=== PATIENT | female | born 1995 | race Caucasian/White ===

== ENCOUNTER 2017-02-21 18:44 | Inpatient (IN) | payer SELFPAY ==
[~2017-02-21] VITALS: Ht 170.2 cm; Wt 113.0 kg
[2017-02-21] VITALS (8 sets, daily range): BP systolic 137–152; BP diastolic 84–93; PULSE 70–79; RESP 18–20
--- NOTE | 2017-02-21 19:34 | PD ---
HPI Chief Complaint Contractions Date Seen: Feb 21, 2017 Time Seen: 19:25 Travel History International Travel<30 Days: No Contact w/Intl Traveler<30Days: No Known Affected Area: No History of Present Illness HPI 21-year-old white female at 39-40 weeks who presents complaining of contractions today. No bleeding or leakage of fluid. Baby is active. Patient just got out of the [employer] several weeks ago and has not established care here and when she moved back here for that and delivery. Heart rate tracing is reassuring but not quite reactive yet and we'll monitor until that has become reactive. She is only having occasional contraction at this time the patient says she thinks they've been every 5 minutes for several hours., Blood pressure 146/92 , she has 3-4+ pitting edema in the legs to her lower extremities, and urinalysis is 4+ protein dipstick Weeks Gestation: 39 Para: 0 : 2 Last Menstrual Period: Feb 21, 2017 Miscarriage: 1 History Obstetric History Obstetric History 1 early loss Past Surgical History Narrative Surgical Tonsillectomy Social History Narrative Social History The patient just got out of the [employer] 2 weeks ago and she had care there but in several different locations Alcohol Use: No Tobacco Use: No Substance Abuse: No Allergies-Medications (Allergen,Severity, Reaction): Coded Allergies: azithromycin (Verified Allergy, Unknown, 02/21/17) sertraline (Verified Allergy, Unknown, 02/21/17) Review of Systems General / Constitutional: No: Fever, Weight Gain, Chills, Other Eyes: No: Diploplia, Blurred Vision, Visual changes, Pain, Photophobia HENT: Headaches, No: Vertigo, Lightheadedness Cardiovascular: No: Irregular Rhythm, Chest Pain or Discomfort, Palpitations, Tachycardia, Syncope, Varicosities, Edema, Cyanosis Respiratory: No: Cough, Short of Breath, Other Gastrointestinal: Abdominal Pain, No: Nausea, Vomiting, Diarrhea Genitourinary: No: Decreased Urinary Output, Oliguria Musculoskeletal: No: Limited ROM, Weakness, Cramping, Edema, Pain Skin: No Rash, No Itching, No Dryness, No Lumps, No Change in Pigmentation, No Change in Nails, No Alopecia, No Lesions Neurologic: No: Weakness, Dizziness, Syncope, Focal Abnormalities, Coordination Problem, Headache, Slurred Speech, Seizures Psychiatric: No: Depression, Suicidal Ideations, Homicidal Ideation Endocrine: No: Heat Intolerance, Cold Intolerance, Polydipsia, Polyuria, Other Physical Exam Narrative GENERAL: Well-nourished, well-developed patient. SKIN: Warm and dry. HEAD: Normocephalic and atraumatic. EYES: No scleral icterus. No injection or drainage. ENT: No nasal drainage noted. Mucous membranes pink. Airway patent. NECK: Supple, trachea midline. No JVD. CARDIOVASCULAR: Regular rate and rhythm without murmurs, gallops, or rubs. RESPIRATORY: Breath sounds equal bilaterally. No accessory muscle use. BREASTS: Bilateral exam showed no masses , no retractions, no nipple discharge. ABDOMEN/GI: Abdomen soft, 1+-tender, bowel sounds present, no rebound, no guarding Gravid to [-39] weeks size Fundal Height: [39-] GENITOURINARY: External Genitalia: intact and normal in appearance BUS glands: [-] Cervix: [-post] Dilatation: [2-] Effacement: [60-] Station: [-3] Presentation: [-vtx] Membranes: [intact ] Uterine Contractions: [occasional-] FHT's: Category: [1-] Baseline: [133-] Reactive: [yes-] Variability: [-mod] Decels: [-none] EXTREMITIES: No cyanosis , + 3+ pitting edema in LE BACK: Nontender without obvious deformity. No CVA tenderness. NEUROLOGICAL: Awake and alert. Motor and sensory grossly within normal limits. Five out of 5 muscle strength in all muscle groups. Normal speech. Data Data Orders Orders Vital Signs (Adult) .ON ADMISSION (02/21/17 19:27) ^ Labor Status (02/21/17 19:27) Urinalysis - C+S If Indicated (02/21/17 19:27) ^ Non Stress Test (02/21/17 19:27) Labs Urine dipstick on OB ED is 4+ proteinuria greater than 300 mg/dL [facility] Interpretation(s) Patient is 21-year-old white female at 39-40 weeks sees her due date is tomorrow who presents combining of contractions every 5 minutes today. Heart rate tracing is reactive she is racquel occasionally and the cervix is 2/ 60 /and -3, however her blood pressure initially 146/92 subsequent blood pressure was within normal limits and the unfortunately urine dipstick was showed greater than 300 mg/dL equating 4+ proteinuria, she has 3-4+ pitting edema in the pretibial region, she's had headaches recently no visual changes flashing lights in her eyes or right upper quadrant pain Impression--preeclampsia at term racquel this evening with a favorable cervix Plans admission [facility]H evaluation ,workup ,therapy, and augmentation of labor to effect delivery Plan Plan to admit patient for preeclampsia at term and the latent phase labor will augment her labor and effect vaginal delivery if possible Diagnosis Diagnosis: Primary Impression: Uterine contractions during Additional Impression: Pre-eclampsia during in third trimester, antepartum Dakota Dunaway II, MD Feb 21, 2017 19:34
--- NOTE | 2017-02-21 19:54 | HHI.HP ---
History & Physical H&P OB ED Note (Detail) Patient Name: Lupe Tee Unit Number: [id number] Date of : 1995 Patient Status: Registered Emergency Room Attending Doctor: Dakota Dunaway II, MD HPI HPI Chief Complaint Contractions Date Seen: Feb 21, 2017 Time Seen: 19:25 Travel History International Travel<30 Days: No Contact w/Intl Traveler<30Days: No Known Affected Area: No History of Present Illness HPI 21-year-old white female at 39-40 weeks who presents complaining of contractions today. No bleeding or leakage of fluid. Baby is active. Patient just got out of the [employer] several weeks ago and has not established care here and when she moved back here for that and delivery. Heart rate tracing is reassuring but not quite reactive yet and we'll monitor until that has become reactive. She is only having occasional contraction at this time the patient says she thinks they've been every 5 minutes for several hours., Blood pressure 146/92 , she has 3-4+ pitting edema in the legs to her lower extremities, and urinalysis is 4+ protein dipstick Weeks Gestation: 39 Para: 0 : 2 Last Menstrual Period: Feb 21, 2017 Miscarriage: 1 History (Limited) History Obstetric History Obstetric History 1 early loss Past Surgical History Narrative Surgical Tonsillectomy Social History Narrative Social History The patient just got out of the [employer] 2 weeks ago and she had care there but in several different locations Alcohol Use: No Tobacco Use: No Substance Abuse: No Allergies-Medications Allergies-Medications (Allergen,Severity, Reaction): Coded Allergies: azithromycin (Verified Allergy, Unknown, 02/21/17) sertraline (Verified Allergy, Unknown, 02/21/17) ROS Review of Systems General / Constitutional: No: Fever, Weight Gain, Chills, Other Eyes: No: Diploplia, Blurred Vision, Visual changes, Pain, Photophobia HENT: Headaches, No: Vertigo, Lightheadedness Cardiovascular: No: Irregular Rhythm, Chest Pain or Discomfort, Palpitations, Tachycardia, Syncope, Varicosities, Edema, Cyanosis Respiratory: No: Cough, Short of Breath, Other Gastrointestinal: Abdominal Pain, No: Nausea, Vomiting, Diarrhea Genitourinary: No: Decreased Urinary Output, Oliguria Musculoskeletal: No: Limited ROM, Weakness, Cramping, Edema, Pain Skin: No Rash, No Itching, No Dryness, No Lumps, No Change in Pigmentation, No Change in Nails, No Alopecia, No Lesions Neurologic: No: Weakness, Dizziness, Syncope, Focal Abnormalities, Coordination Problem, Headache, Slurred Speech, Seizures Psychiatric: No: Depression, Suicidal Ideations, Homicidal Ideation Endocrine: No: Heat Intolerance, Cold Intolerance, Polydipsia, Polyuria, Other Physical Exam Physical Exam Narrative GENERAL: Well-nourished, well-developed patient. SKIN: Warm and dry. HEAD: Normocephalic and atraumatic. EYES: No scleral icterus. No injection or drainage. ENT: No nasal drainage noted. Mucous membranes pink. Airway patent. NECK: Supple, trachea midline. No JVD. CARDIOVASCULAR: Regular rate and rhythm without murmurs, gallops, or rubs. RESPIRATORY: Breath sounds equal bilaterally. No accessory muscle use. BREASTS: Bilateral exam showed no masses , no retractions, no nipple discharge. ABDOMEN/GI: Abdomen soft, 1+-tender, bowel sounds present, no rebound, no guarding Gravid to [-39] weeks size Fundal Height: [39-] GENITOURINARY: External Genitalia: intact and normal in appearance BUS glands: [-] Cervix: [-post] Dilatation: [2-] Effacement: [60-] Station: [-3] Presentation: [-vtx] Membranes: [intact ] Uterine Contractions: [occasional-] FHT's: Category: [1-] Baseline: [133-] Reactive: [yes-] Variability: [-mod] Decels: [-none] EXTREMITIES: No cyanosis , + 3+ pitting edema in LE BACK: Nontender without obvious deformity. No CVA tenderness. NEUROLOGICAL: Awake and alert. Motor and sensory grossly within normal limits. Five out of 5 muscle strength in all muscle groups. Normal speech. Data Data Data Orders Orders Vital Signs (Adult) .ON ADMISSION (02/21/17 19:27) ^ Labor Status (02/21/17 19:27) Urinalysis - C+S If Indicated (02/21/17 19:27) ^ Non Stress Test (02/21/17 19:27) Labs Urine dipstick on OB ED is 4+ proteinuria greater than 300 mg/dL [facility] MDM Interpretation(s) Patient is 21-year-old white female at 39-40 weeks sees her due date is tomorrow who presents combining of contractions every 5 minutes today. Heart rate tracing is reactive she is racquel occasionally and the cervix is 2/ 60 /and -3, however her blood pressure initially 146/92 subsequent blood pressure was within normal limits and the unfortunately urine dipstick was showed greater than 300 mg/dL equating 4+ proteinuria, she has 3-4+ pitting edema in the pretibial region, she's had headaches recently no visual changes flashing lights in her eyes or right upper quadrant pain Impression--preeclampsia at term racquel this evening with a favorable cervix Plans admission [facility] evaluation ,workup ,therapy, and augmentation of labor to effect delivery Plan Plan to admit patient for preeclampsia at term and the latent phase labor will augment her labor and effect vaginal delivery if possible Diagnosis Diagnosis: Primary Impression: Uterine contractions during Additional Impression: Pre-eclampsia during in third trimester, antepartum Dakota Dunaway II, MD Feb 21, 2017 19:34 Dakota Dunaway II, MD Feb 21, 2017 19:54
[2017-02-21] MEDS ORDERED: hydrALAZINE HCL 20 MG/ML VIAL IV PUSH PRN (20:00)
[2017-02-21] MEDS ORDERED: ONDANSETRON HCL 4 MG/2 ML VIAL IV PUSH PRN (20:00)
[2017-02-21] MEDS ORDERED: CALCIUM GLUCONATE 10% 1 GM/10 ML VIAL IV PUSH PRN (20:00)
[2017-02-21] MEDS ORDERED: ACETAMINOPHEN 325 MG TAB PO PRN (20:00)
[2017-02-21] MEDS ORDERED: DINOPROSTONE 10 MG VAG INSERT VAGINAL ONE (20:00)
[2017-02-21] MEDS ORDERED: SODIUM CHLORIDE 0.9% FLUSH 10 ML FLUSH IV FLUSH PRN (20:00)
[2017-02-21] MEDS ORDERED: COLA100C5 PO (20:56)
[2017-02-21] MEDS ORDERED: PRENTAB7 PO (20:56)
[2017-02-21] MEDS ORDERED: FERR325T18 PO (20:56)
[2017-02-21] MEDS ORDERED: PENICILLIN G POTASSIUM INJ 5,000,000 UNITS in SODIUM CHLORIDE 0.9% INJ 100 ML IV ONE (21:00)
[2017-02-21] MEDS ORDERED: SODIUM CHLORIDE 0.9% FLUSH 10 ML FLUSH IV FLUSH SCH (21:00)
[2017-02-21 21:23] LABS: BACTERIA, URINE MOD /hpf; BILIRUBIN, URINE NEG (NEG); BLOOD, URINE TRACE (NEG); GLUCOSE,URINE NEG (NEG); KETONE, URINE NEG (NEG); MUCUS URINE MANY /lpf (OCC); NITRITE,URINE NEG (NEG); PH, URINE 6.5 (5.0-8.5); SQUAMOUS EPITHELIAL CELL URINE 8 /hpf (0-5); URINE COLOR YELLOW (YELLW/STRAW); URINE LEUKOCYTE ESTERASE MOD (NEG)
[2017-02-21 21:54] LABS: HEMATOCRIT 26.7 % (35.0-46.0); HEMOGLOBIN 9.2 GM/DL (11.6-15.3); MEAN CELL VOLUME 83.4 FL (80.0-100.0); MEAN CORPUSCULAR HEMOGLOBIN 28.7 PG (27.0-34.0); MEAN CORPUSCULAR HGB CONC 34.4 % (32.0-36.0); PLATELET COUNT 258 TH/MM3 (150-450); RED CELL DISTRIBUTION WIDTH 13.9 % (11.6-17.2); WHITE BLOOD COUNT 8.5 TH/MM3 (4.0-11.0)
[2017-02-21] MEDS: LACTATED RINGER'S 1000 ML INJ 1,000 ML IV SCH (22:02)
[2017-02-21 22:09] LABS: ALBUMIN 2.3 GM/DL (3.4-5.0); AST (GOT) 8 U/L (15-37); BICARBONATE 19.6 MEQ/L (21.0-32.0); BLOOD UREA NITROGEN 11 MG/DL (7-18); CALCIUM 7.7 MG/DL (8.5-10.1); CHLORIDE 105 MEQ/L (98-107); CREATININE 0.63 MG/DL (0.50-1.00); GLOMERULAR FILTRATION RATE 117 ML/MIN (>89); GLUCOSE,RANDOM 84 MG/DL (74-106); SODIUM (NA) 136 MEQ/L (136-145)
[2017-02-21 22:10] LABS: ALT (GPT) 12 U/L (10-53)
[2017-02-21 22:12] LABS: ALKALINE PHOSPHATASE 174 U/L (45-117); TOTAL BILIRUBIN ADULT 0.1 MG/DL (0.2-1.0); TOTAL PROTEIN 6.2 GM/DL (6.4-8.2)
[2017-02-22] VITALS (13 sets, daily range): BP systolic 98–152; BP diastolic 65–86; PULSE 72–85; RESP 16–20; TEMP 97.7–98.8
[2017-02-22] MEDS: PENICILLIN G POTASSIUM INJ 2,500,000 UNITS in SODIUM CHLORIDE 0.9% INJ 100 ML IV SCH ×3 (01:00→09:38)
[2017-02-22] MEDS: LACTATED RINGER'S 1000 ML INJ 1,000 ML IV SCH ×3 (01:23→09:38)
--- NOTE | 2017-02-22 02:57 | PD.LABORPN ---
Subjective Subjective Patient lying comfortably on left lateral side in bed. Only complaint is of wanting to take a shower. Endorses some pelvic pressure. Denies significant LEAL, visual changes, RUQ abdominal pain. Objective Vital Signs Vital Signs Date Time Temp Pulse Resp B/P (MAP) Pulse Ox O2 Delivery O2 Flow Rate FiO2 02/22/17 00:00 20 02/22/17 00:00 98.8 02/21/17 23:40 76 146/93 (110) 02/21/17 23:00 20 02/21/17 21:59 20 02/21/17 21:57 70 140/90 (107) 02/21/17 20:15 18 02/21/17 20:11 79 152/85 (107) 02/21/17 19:45 18 02/21/17 19:40 79 137/84 (101) Objective Pelvic Exam (from admission): Cervix: [posterior] Dilatation: [2cm] Effacement: [60%] Station: [-3] Presentation: [vertex] Membranes: [intact] Uterine Contractions: occasional on tocometer FHT's: Category: I Baseline: 150s Reactive: yes Variability: mod Decels: none Weeks Gestation: 39 Pt started active labor?: No Assessment/Plan Problem List: (1) Pre-eclampsia during in third trimester, antepartum ICD Codes: O14.93 - Unspecified pre-eclampsia, third trimester Status: Acute (2) Intrauterine ICD Codes: Z34.90 - Encounter for supervision of normal , unspecified , unspecified trimester Assessment and Plan Patient is a 21 year old female at 40 weeks gestation admitted with contractions occurring about every 5 minutes and with pre-eclampsia. - Category I tracing - Urine dipstick showing 4+ proteinuria - 3-4+ pitting edema of lower extremities - Cervix favorable on admission - s/p Cervidil 10 mg vaginally given 22:00 for cervical ripening - Uric acid 4.5 - LFTs WNL - Continue PCN prophylaxis per protocol - Continue augmentation of labor Mauri Warren MD R2 Feb 22, 2017 02:57
[2017-02-22] MEDS ORDERED: fentaNYL 2MCG-BUPIV 0.125% INJ 100 ML ONE (07:45)
[2017-02-22] MEDS ORDERED: LIDOCAINE HCL 1% 50 ML VIAL ONE (10:04)
[2017-02-22] MEDS ORDERED: OXYTOCIN 30 UNITS-500ML PREMIX 500 ML ONE (10:04)
[2017-02-22] MEDS ORDERED: DO NOT ADMINISTER ANTICOAGULANTS PRN (10:45)
[2017-02-22] MEDS ORDERED: fentaNYL 2MCG-BUPIV 0.125% 100 ML EPIDURAL SCH (10:45)
[2017-02-22] MEDS ORDERED: ePHEDrine/NS 25 MG/5 ML SYRINGE IV PUSH PRN (10:45)
[2017-02-22] MEDS ORDERED: NO SYSTEM NARCOTICS PRN (10:45)
[2017-02-22] MEDS ORDERED: CARBOPROST TROMETHAMINE 250 MCG/ML VIAL ONE (11:15)
[2017-02-22] MEDS ORDERED: MISOPROSTOL 200 MCG TAB ONE (11:15)
--- NOTE | 2017-02-22 11:32 | PD.OB.DELI ---
Weeks gestation: 39 Pt started active labor?: Yes Medical induction of labor?: Yes Artificial rupture of membrane: No Anesthesia: Epidural Episiotomy: None Vaginal Delivery: Normal, Spontaneous Presentation: Occiput anterior Nuchal Cord: None Delayed cord clamping (45 sec): Yes Shoulder Dystocia: Wendy maneuver done Infant: Female Delivery date: Feb 22, 2017 Delivery time: 11:10 One Minute : 8 Five Minute : 9 Weight: 4005g Placenta: Spontaneous delivery, Intact, 3 vessel cord Laceration: 2 deg Repair: Vicryl interrupted Estimated blood loss: 450cc Prasad Lu MD Feb 22, 2017 11:32
[2017-02-22] MEDS ORDERED: ZOLPIDEM TARTRATE 5 MG TAB PO PRN (11:45)
[2017-02-22] MEDS ORDERED: BENZOCAINE 20% TOPICAL SPRAY 60 ML CAN TOPICAL PRN (11:45)
[2017-02-22] MEDS ORDERED: WITCH HAZEL 50%/GLYCERIN 12.5% 40 PAD JAR TOPICAL PRN (11:45)
[2017-02-22] MEDS ORDERED: ALUMINUM/MAGNESIUM/SIMETH 30 ML CUP PO PRN (11:45)
[2017-02-22] MEDS ORDERED: OXYTOCIN 30 UNITS-500ML PREMIX 500 ML IV SCH (11:45)
[2017-02-22] MEDS ORDERED: DOCUSATE SODIUM 50 MG/SENNA 8.6 MG TAB PO PRN (11:45)
[2017-02-22] MEDS ORDERED: PENICILLIN G POTASSIUM INJ 2,500,000 UNITS in SODIUM CHLORIDE 0.9% INJ 100 ML IV SCH (13:00)
[2017-02-22] MEDS: IBUPROFEN 800 MG TAB PO PRN ×2 (13:14→21:14)
[2017-02-22] MEDS ORDERED: DIPHTH/TETANUS/ACEL PERTUSSIS (BOOSTER) 0.5 ML VIAL/PFS IM ONE (16:00)
[2017-02-22] MEDS ORDERED: MEASLES, MUMPS, RUBELLA VACCINE 0.5 ML VIAL SQ ONE (16:00)
[2017-02-23 08:00] VITALS: BP 131/80; PULSE 82; RESP 18; TEMP 98.3
--- NOTE | 2017-02-23 08:10 | HHI.OB ---
Subjective Post Day: 1 Remarks day #1. AFVSS overnight. Pain controlled. Decreased lochia. Denies dysuria. She is feeding the baby via bottle. Appetite good. No nausea or vomiting. + flatus. Ambulating well. Denies calf pain, shortness of breath, or cough. Otherwise, she is doing well this morning and has no other complaints. Objective Vitals/I&O Vital Signs Date Time Temp Pulse Resp B/P (MAP) Pulse Ox O2 Delivery O2 Flow Rate FiO2 02/22/17 20:00 97.7 85 18 152/71 (98) 02/22/17 13:01 83 98/65 (76) 02/22/17 12:45 80 123/83 (96) 02/22/17 12:30 74 132/86 (101) Objective Remarks GENERAL: Well-nourished, well-developed patient. CARDIOVASCULAR: Regular rate and rhythm without murmurs, gallops, or rubs. RESPIRATORY: Breath sounds equal bilaterally. No accessory muscle use. ABDOMEN/GI: Abdomen soft, non-tender. Fundus: Firm, non-tender at umbilicus. GENITOURINARY: Light to moderate bleeding. EXTREMITIES: No cyanosis or edema, non-tender, without signs of DVT. Medications and IVs Current Medications Medications (Trade) Dose Ordered Sig/Crystal Route Start Time Stop Time Status Last Admin Lactated Ringer's 1,000 ml @ 75 mls/hr [id number] IV 02/21/17 20:00 02/22/17 09:38 (NS Flush) 2 ml UNSCH PRN IV FLUSH 02/21/17 20:00 (NS Flush) 2 ml BID IV FLUSH 02/21/17 21:00 (Calcium Gluconate Inj) 1 gm UNSCH PRN IV PUSH 02/21/17 20:00 (Tylenol) 650 mg Q4H PRN PO 02/21/17 20:00 (Zofran Inj) 4 mg Q6H PRN IV PUSH 02/21/17 20:00 (fentaNYL INJ) 100 mcg Q2H PRN IV 02/22/17 01:30 02/22/17 03:46 (fentaNYL INJ) 50 mcg Q2HR PRN IV PUSH 02/22/17 01:45 Penicillin G Potassium [id number] units/Sodium Chloride 100 ml @ 200 mls/hr Q4H IV 02/22/17 13:00 Miscellaneous Information No systemic narcotics to be given except... UNSCH PRN .XX 02/22/17 10:45 02/23/17 10:44 Miscellaneous Information DO NOT ADMINISTER ANY ANTICOAGUL... UNSCH PRN .XX 02/22/17 10:45 02/23/17 10:44 Fentanyl/ Bupivacaine HCl 100 ml @ 0 mls/hr TITRATE EPIDURAL 02/22/17 10:45 (ePHEDrine/NS 25 MG/5 ML SYR) 10 mg UNSCH PRN IV PUSH 02/22/17 10:45 02/23/17 10:44 (Motrin) 800 mg Q8H PRN PO 02/22/17 11:45 02/22/17 21:14 (Americaine 20% Top Spr) 1 spray Q4H PRN TOPICAL 02/22/17 11:45 02/22/17 13:14 (Tucks Pads) 1 applic QID PRN TOPICAL 02/22/17 11:45 02/22/17 13:14 (Marlena-Colace) 2 tab Q12H PRN PO 02/22/17 11:45 (Ambien) 5 mg HS PRN PO 02/22/17 11:45 (Mag-Al Plus Susp Liq) 15 ml Q8H PRN PO 02/22/17 11:45 Assessment/Plan Problem List: (1) Pre-eclampsia during in third trimester, antepartum ICD Codes: O14.93 - Unspecified pre-eclampsia, third trimester Status: Acute (2) Intrauterine ICD Codes: Z34.90 - Encounter for supervision of normal , unspecified , unspecified trimester Assessment and Plan 21y/o who is PPD#1 s/p . -Continue routine care. -Percocet and Motrin PRN pain. -Encouraged OOB. Advised pelvic rest for 6 wks. -Will need a f/u appt. within 6 wks. -D/c in 1-2 more days. [facility] OB attending April Bunn MD R1 Feb 23, 2017 08:10
[2017-02-23] MEDS: IBUPROFEN 800 MG TAB PO PRN ×2 (08:19→16:18)
[2017-02-23] MEDS ORDERED: oxyCODONE/ACETAMINOPHEN 10 MG/325 MG TAB PO PRN (09:15)
[2017-02-23] MEDS: BENZONATATE 100 MG CAP PO PRN ×2 (10:27→18:21)
[2017-02-23 19:40] VITALS: BP 142/85; PULSE 76; RESP 17; TEMP 97.9; O2SAT 98
[2017-02-24] MEDS: IBUPROFEN 800 MG TAB PO PRN ×2 (00:54→09:07)
[2017-02-24] MEDS: BENZONATATE 100 MG CAP PO PRN (05:38)
--- NOTE | 2017-02-24 08:29 | HHI.DCPOC ---
Discharge Care Plan Diagnosis: (1) Intrauterine Report Symptoms to Your Doctor -Temperature above 100.5 degrees -Redness, of incision or excessive or foul smelling drainage -Unusual pain or calf pain -Increased vaginal bleeding -Painful or difficulty urinating -Feelings of extreme sadness or anxiety after 2 weeks Goals to Promote Your Health * To prevent worsening of your condition and complications * To maintain your health at the optimal level Directions to Meet Your Goals Take your medications as prescribed Follow your dietary instruction Follow activity as directed Ensure plenty of rest for recovery Drink fluids for hydration Keep your appointments as scheduled Take your immunizations and boosters as scheduled If your symptoms worsen call your PCP, if no PCP go to Urgent Care Center or Emergency Room Smoking is Dangerous to Your Health. Avoid second hand smoke Call the 24-hour crisis hotline for domestic abuse at Valery Stokes MD R2 Feb 24, 2017 08:29
[2017-02-24] MEDS ORDERED: IBUP1TAB7 PO (08:30)
[2017-02-24] MEDS ORDERED: medroxyPROGESTERone ACETATE SUSP 150 MG/ML SYRINGE IM ONE (08:30)
--- NOTE | 2017-02-24 09:11 | HHI.OB ---
Subjective Post Day: 2 Remarks day #2. AFVSS overnight. Pain controlled. Decreased lochia. Denies dysuria. She is feeding the baby via bottle. Appetite good. No nausea or vomiting. Ambulating well. Denies calf pain, shortness of breath, or cough. Otherwise, she is doing well this morning and has no other complaints. (Valery Stokes MD R2) Remarks Patient seen and evaluated with resident under direct supervision, agree with assessment and plan. (Vu Gu MD) Objective Vitals/I&O Vital Signs Date Time Temp Pulse Resp B/P (MAP) Pulse Ox O2 Delivery O2 Flow Rate FiO2 02/23/17 19:40 97.9 76 17 142/85 (104) 98 Objective Remarks GENERAL: Well-nourished, well-developed female in no apparent distress. CARDIOVASCULAR: Regular rate and rhythm without murmurs, gallops, or rubs. RESPIRATORY: Breath sounds equal bilaterally. No accessory muscle use. ABDOMEN/GI: Abdomen soft, non-tender. Fundus: Firm, non-tender at umbilicus. GENITOURINARY: Light to moderate bleeding. EXTREMITIES: No cyanosis or edema, non-tender, without signs of DVT. Medications and IVs Current Medications Medications (Trade) Dose Ordered Sig/Crystal Route Start Time Stop Time Status Last Admin Lactated Ringer's 1,000 ml @ 75 mls/hr [id number] IV 02/21/17 20:00 02/22/17 09:38 (NS Flush) 2 ml UNSCH PRN IV FLUSH 02/21/17 20:00 (NS Flush) 2 ml BID IV FLUSH 02/21/17 21:00 (Calcium Gluconate Inj) 1 gm UNSCH PRN IV PUSH 02/21/17 20:00 (Tylenol) 650 mg Q4H PRN PO 02/21/17 20:00 (Zofran Inj) 4 mg Q6H PRN IV PUSH 02/21/17 20:00 (fentaNYL INJ) 100 mcg Q2H PRN IV 02/22/17 01:30 02/22/17 03:46 (fentaNYL INJ) 50 mcg Q2HR PRN IV PUSH 02/22/17 01:45 Penicillin G Potassium [id number] units/Sodium Chloride 100 ml @ 200 mls/hr Q4H IV 02/22/17 13:00 Fentanyl/ Bupivacaine HCl 100 ml @ 0 mls/hr TITRATE EPIDURAL 02/22/17 10:45 (Motrin) 800 mg Q8H PRN PO 02/22/17 11:45 02/24/17 00:54 (Americaine 20% Top Spr) 1 spray Q4H PRN TOPICAL 02/22/17 11:45 02/22/17 13:14 (Tucks Pads) 1 applic QID PRN TOPICAL 02/22/17 11:45 02/22/17 13:14 (Marlena-Colace) 2 tab Q12H PRN PO 02/22/17 11:45 02/23/17 16:18 (Ambien) 5 mg HS PRN PO 02/22/17 11:45 (Mag-Al Plus Susp Liq) 15 ml Q8H PRN PO 02/22/17 11:45 (Tessalon) 100 mg TID PRN PO 02/23/17 08:45 02/24/17 05:38 (Percocet 10-325 Mg) 1 tab Q6H PRN PO 02/23/17 09:15 (Valery Stokes MD R2) Assessment/Plan Problem List: (1) Pre-eclampsia during in third trimester, antepartum ICD Codes: O14.93 - Unspecified pre-eclampsia, third trimester Status: Acute (2) Intrauterine ICD Codes: Z34.90 - Encounter for supervision of normal , unspecified , unspecified trimester Assessment and Plan 21y/o who is PPD #2 s/p . -Continue routine care. -Tylenol and Motrin PRN pain. -Encouraged OOB. Advised pelvic rest for 6 wks. -Will need a f/u appt. within 6 wks. -D/c today. DW Dr. Gu (Valery Stokes MD R2) Valery Stokes MD R2 Feb 24, 2017 09:11 Vu Gu MD Feb 28, 2017 11:34
[2017-02-24 10:00] VITALS: BP 146/82; PULSE 98; RESP 18; TEMP 98.8
== END 2017-02-24 12:16 | disposition home or self-care (01) | DRG 775 ==
LOC: HOBED 18:44 → H2EB 20:30 → H1EA 02-22 15:04
PROVIDERS: ADMIT Obstetrics & Gynecology Maternal & Fetal Medicine; ATTEND Obstetrics & Gynecology Maternal & Fetal Medicine
PROC: 10E0XZZ Delivery of Products of Conception, External Approach (ICD-10-PCS; principal; 2017-02-22)
PROC: 0KQM0ZZ Repair Perineum Muscle, Open Approach (ICD-10-PCS; 2017-02-22)
DX: O14.94 Unspecified pre-eclampsia, complicating childbirth (principal); O66.0 Obstructed labor due to shoulder dystocia; O70.1 Second degree perineal laceration during delivery; Z37.0 Single live birth; Z3A.40 40 weeks gestation of pregnancy; Z88.1 Allergy status to other antibiotic agents
CPT/HCPCS: 80053; 80307; 81001; 84550; 85027; 86403; 86850; 86900; 86901; 87081; 87086; 87150; 88307; 90715; G0481; J1050; J2540; J2590; J3010; J7120